=== PATIENT | male | born 1990 | race Caucasian/White ===

== ENCOUNTER 2017-06-08 18:16 | Emergency (ER) | payer SELFPAY ==
[~2017-06-08] VITALS: Ht 180.3 cm; Wt 79.4 kg
== END 2017-06-08 20:03 | disposition home or self-care (01) ==
LOC: ER 18:16
DX: D17.1 Benign lipomatous neoplasm of skin and subcutaneous tissue of trunk (principal); F17.210 Nicotine dependence, cigarettes, uncomplicated
CPT/HCPCS: 99282

== ENCOUNTER → 2024-06-27 | Outpatient (CLI) | payer OTHER | LOC: LAB 17:44 → LAB SHORT 17:44 | DX: L98.9 Disorder of the skin and subcutaneous tissue, unspecified (principal) | CPT/HCPCS: 87070; 87075; 87077; 87147; 87186; 87205 ==

== ENCOUNTER 2025-01-08 12:20 | Emergency (ER) | payer OTHER ==
[~2025-01-08] VITALS: Ht 180.3 cm; Wt 86.2 kg
[2025-01-08 12:48] VITALS: BP 150/90
[2025-01-08] MEDS ORDERED: CEPH500 PO (12:51)
== END 2025-01-08 12:51 | disposition home or self-care (01) ==
LOC: ER 12:20
DX: L02.416 Cutaneous abscess of left lower limb (principal); F17.210 Nicotine dependence, cigarettes, uncomplicated
CPT/HCPCS: 99283